=== PATIENT | male | born 1985 | race Caucasian/White ===

== ENCOUNTER → 2017-06-24 | Outpatient (CLI) | payer OTHER ==
--- NOTE | 2017-06-24 11:09 | DIAGNOSTIC IMAGING REPORT ---
Mitra DOMINGUEZ SHLDR,HIP,KNEE FLUOROSCOPY TIME: 18 seconds HISTORY: Chronic left hip pain. PROCEDURE: After obtaining written informed consent, the patient was placed supine on the fluoroscopy table. A suitable site for needle insertion was marked using fluoroscopic guidance. The left hip was prepped and draped in the usual sterile fashion. 1% lidocaine was used for skin, subcutaneous and deep soft tissue anesthesia. Under intermittent fluoroscopic guidance, a 22 gauge x 3.5 inch spinal needle was inserted into the left femoral acetabular joint. 2 cc of Optiray 300 was injected to confirm the intra-articular location. This is followed by a mixture of 8 cc of 0.5% sensorcaine and 2 cc of betamethasone at the request of the referring physician. The needle was then removed. There were no apparent complications. IMPRESSION: Fluoroscopic-guided left hip steroid injection without immediate complication. The above report was generated using voice recognition software. It may contain grammatical, syntax or spelling errors. Electronically signed by: Cyrus Devlin M.D. 06/24/2017 11:08 AM Dictated Date/Time: 06/24/2017 11:06 AM
== END | disposition home or self-care (01) ==
LOC: C.RADBC 09:44
PROVIDERS: ATTEND Orthopaedic Surgery
DX: M16.12 Unilateral primary osteoarthritis, left hip (principal)

== ENCOUNTER → 2017-07-17 | Outpatient (CLI) | payer OTHER | END | disposition home or self-care (01) | LOC: C.RDSM 17:40 | PROVIDERS: ATTEND Orthopaedic Surgery | DX: M25.552 Pain in left hip (principal) ==

== ENCOUNTER → 2017-07-24 | Outpatient (CLI) | payer OTHER ==
[~2017-07-24] MED LIST: GADAVIST IV PRN
--- NOTE | 2017-07-24 15:03 | DIAGNOSTIC IMAGING REPORT ---
L LOWER EXT NONJOINT COMBO CLINICAL HISTORY: 31 years-old Male presenting with MASS LEFT THIGH, mass in the middle of the left side for 3 years, tender, marked. TECHNIQUE: Multisequence, multiplanar MR imaging of the left femur was performed before and after the administration of intravenous contrast. IV contrast: 8.5 mL of Gadavist. COMPARISON: Plain radiograph of the left hip from 05/20/2017. FINDINGS: Localizer images: Unremarkable. Normal bone marrow signal intensity. No periostitis. No fracture. The left hip and left knee joints grossly congruent. A marker is in place over the anterior left thigh in the midportion. No subjacent lesion. No abnormal enhancement. No edema. Musculature of the thigh demonstrates normal signal intensity and normal muscle bulk. Vasculature patent. IMPRESSION: No MR abnormality at the site of clinical concern. Electronically signed by: Antonio Deutsch M.D. 07/24/2017 3:02 PM Dictated Date/Time: 07/24/2017 2:59 PM
== END | disposition home or self-care (01) ==
LOC: C.MRIBC 13:11
PROVIDERS: ATTEND Orthopaedic Surgery
DX: M70.60 Trochanteric bursitis, unspecified hip (principal); R22.42 Localized swelling, mass and lump, left lower limb